=== PATIENT | female | born 1940 | race Two or more races ===

== ENCOUNTER 2018-02-27 08:40 | Outpatient (CLI) | payer OTHER ==
[~2018-02-27 08:40] MED LIST: ASA81 MG PO; DIOVAN160 M1 PO; LEVSIN0.125 MG PO; NEURONTIN800 MG PO; ORPH100T PO; PREVACID30 MG PO; PROTONIX40 MG PO; VYTORIN 10-20 M1 TAB PO; ZANTAC300 MG PO; ZOFRAN4 MG PO; [UNRECOGNIZED DRUG - OTHER] PO
== END 2018-02-27 08:48 | disposition home or self-care (01) ==
LOC: SONOGRAMA 08:40
DX: E04.1 Nontoxic single thyroid nodule (principal)

== ENCOUNTER 2018-10-05 16:42 | Emergency (ER) | payer OTHER ==
[~2018-10-05] VITALS: Ht 162.6 cm; Wt 92.5 kg
== END 2018-10-05 22:23 | disposition home or self-care (01) ==
LOC: ER 16:42
DX: R51 Headache (principal)

== ENCOUNTER 2019-04-10 07:24 | Outpatient (CLI) | payer OTHER | END 2019-04-10 07:26 | disposition home or self-care (01) | LOC: NUCLEAR 07:24 | DX: I10 Essential (primary) hypertension (principal); I25.10 Atherosclerotic heart disease of native coronary artery without angina pectoris; E11.9 Type 2 diabetes mellitus without complications | CPT/HCPCS: 78452; 93017; A9500; J1250 ==